=== PATIENT | female | born 1990 | race Caucasian/White ===

== ENCOUNTER 2021-07-16 12:05 | Inpatient (IN) | payer OTHER ==
[~2021-07-16] VITALS: Ht 172.7 cm; Wt 68.0 kg
[2021-07-16] MEDS ORDERED: LEVOTHYROXINE25 MCG (12:29)
== END 2021-07-17 09:07 | disposition home or self-care (01) | DRG 343 ==
LOC: ER 12:05 → SEC-K 14:07 → SURG 14:07 → O/R 17:10 → SURG 18:45
PROVIDERS: ADMIT Surgery; ATTEND Surgery
PROC: 0DTJ4ZZ Resection of Appendix, Percutaneous Endoscopic Approach (ICD-10-PCS; principal; 2021-07-16 15:30)
DX: K35.890 Other acute appendicitis without perforation or gangrene (principal); Z20.822 Contact with and (suspected) exposure to COVID-19